=== PATIENT | female | born 1930 | race Caucasian/White ===

== ENCOUNTER 2016-12-08 16:07 | Inpatient (IN) | payer OTHER, BC ==
[~2016-12-08] VITALS: Ht 154.9 cm; Wt 65.3 kg
[~2016-12-08 16:07] MED LIST: NOHOMEMEDS; TYLENOL WITH C1 EACH PO
[2016-12-08 16:41] LABS: BASOPHIL COUNT 0.1 K/uL (0-0.1); EOSINOPHIL (%) 7.7 % (0-5); EOSINOPHIL COUNT 0.5 K/uL (0-0.3); HEMATOCRIT 36.8 % (36.0-46.0); IMMATURE GRANULOCYTE (%) 0.3 % (0.0-0.7); INSTRUMENT ABS NEUTROPHIL CT 3.3 K/uL; LYMPHOCYTE COUNT 1.6 K/uL (1.0-2.8); MCH 31.7 PG (29.0-34.0); MCHC 34.2 G/DL (30.0-36.0); MCV 92.7 FL (83-99); MEAN PLAT.VOLUME 10.1 uM^3 (9.5-12.4); MONOCYTE (%) 13.6 % (3-12); MONOCYTE COUNT 0.9 K/uL (0-0.8); NEUTROPHIL (%) 52.4 % (45-76); NEUTROPHIL COUNT 3.3 K/uL (1.8-6.4); PLATELET COUNT 244 K/uL (156-360); RBC DIS.WIDTH-CV 12.6 % (11.8-14.6); RBC DIS.WIDTH-SD 42.7 % (39-53); RED BLOOD COUNT 3.97 M/uL (3.80-5.20); WHITE BLOOD COUNT 6.3 K/uL (4.1-10.2)
[2016-12-08 16:49] LABS: CHLORIDE 106 mEq/L (99-109); SODIUM 137 mEq/L (136-147)
[2016-12-08 16:50] LABS: PTT 28.2 SEC (25-37)
[2016-12-08 16:51] LABS: GLUCOSE 261 mg/dL (70-99)
[2016-12-08 16:52] LABS: ANION GAP 7 MEQ/L (2-14)
[2016-12-08 16:54] LABS: GFR ESTIMATE (CALCULATED) > 59 mL/min/
[2016-12-08 16:55] LABS: UREA NITROGEN (BUN) 11 mg/dL (9-23)
[2016-12-08] MEDS ORDERED: DIABETA5 MG PO (17:24)
[2016-12-08] MEDS ORDERED: ASPIR 8181 M1 PO (17:25)
[2016-12-08] MEDS ORDERED: VITAMINS (17:27)
[2016-12-08 17:32] LABS: HDL CHOLESTEROL 52 MG/DL (Desirable>=50); LDL CHOLESTEROL 109 mg/dL (Desirable<100); NON-HDL CHOLESTEROL 145 mg/dL (Desirable<160); TOTAL CHOLESTEROL 197 mg/dL (Desirable<200); TRIGLYCERIDES 178 MG/DL (Normal: <150)
[2016-12-08 19:37] LABS: ADD MIUA? YES; BILIRUBIN NEGATIVE; BLOOD NEGATIVE; COLOR YELLOW ((YELLOW)); GLUCOSE (STRIP) >=500; KETONES NEGATIVE; LEUKOCYTES NEGATIVE; NITRITE NEGATIVE; PROTEIN (STRIP) NEGATIVE; SPECIFIC GRAVITY 1.003 (1.000-1.030); UROBILINOGEN 0.2 MG/DL (0.2-1.0)
[2016-12-08 19:43] LABS: Estimated Average Glucose 180 mg/dL (70-123); HEMOGLOBIN A1c (GLYCOHEMOGLOB) 7.9 % HGB (Below 5.7)
[2016-12-08 19:46] LABS: BACTERIA NONE SEEN /HPF; CALCIUM OXALATE CRYSTALS 1+ /HPF; EPITHELIAL CELLS RARE /HPF; MUCUS NONE SEEN /LPF; RED BLOOD CELLS 0-5 /HPF (0-5); UCUL ADDED? NO; WHITE BLOOD CELLS 0-5 /HPF (0-5)
[2016-12-08 21:05] VITALS: BP 173/74
[2016-12-08 23:42] VITALS: BP 125/62
[2016-12-09 01:36] LABS: TROP-I INTERPRETATION NEGATIVE; TROPONIN-I < 0.01 ng/mL (0.0-0.30)
[2016-12-09 04:20] VITALS: BP 126/62
[2016-12-09 06:34] LABS: HEMATOCRIT 35.4 % (36.0-46.0); MCHC 32.8 G/DL (30.0-36.0); MCV 94.7 FL (83-99); MEAN PLAT.VOLUME 10.4 uM^3 (9.5-12.4); PLATELET COUNT 217 K/uL (156-360); RBC DIS.WIDTH-CV 12.6 % (11.8-14.6); RBC DIS.WIDTH-SD 43.9 % (39-53); RED BLOOD COUNT 3.74 M/uL (3.80-5.20)
[2016-12-09 06:59] LABS: TROP-I INTERPRETATION NEGATIVE; TROPONIN-I < 0.01 ng/mL (0.0-0.30)
[2016-12-09 07:34] VITALS: BP 137/69
[2016-12-09 12:25] LABS: POINT-OF-CARE METER ID UU13113717
[2016-12-09 12:34] VITALS: BP 136/67
[2016-12-09 13:31] LABS: TROP-I INTERPRETATION NEGATIVE; TROPONIN-I < 0.01 ng/mL (0.0-0.30)
[2016-12-09 16:09] VITALS: BP 154/79
[2016-12-09 19:29] VITALS: BP 172/92
[2016-12-09 21:10] LABS: POINT-OF-CARE METER ID UU14188625
[2016-12-09 23:40] VITALS: BP 164/87
[2016-12-10 04:05] VITALS: BP 126/62
[2016-12-10 08:24] VITALS: BP 148/67
[2016-12-10] MEDS ORDERED: ASPIRIN EC325 MG PO (10:31)
[2016-12-10] MEDS ORDERED: LIPITOR40 MG PO (10:31)
[2016-12-10] MEDS ORDERED: METFORMIN HCL500 M4 PO ×2 (10:31→10:51)
[2016-12-10] MEDS ORDERED: METFORMIN HCL500 MG PO (11:11)
== END 2016-12-10 12:42 | disposition home health service (06) | DRG 65 ==
LOC: EME 16:07 → 5SOUTH 18:30 → EDOF 18:30 → ENRESERV 18:32 → 5SOUTH 19:25 → ENRESERV 19:27 → EDOF 19:29 → ENRESERV 19:30 → 5SOUTH 20:04 → ENRESERV 20:07 → ENPENDDIS 12-10 → 5SOUTH 12-10 12:42
PROVIDERS: Emergency Medicine; Hospitalist
DX: I63.9 Cerebral infarction, unspecified (principal); E11.59 Type 2 diabetes mellitus with other circulatory complications; E11.65 Type 2 diabetes mellitus with hyperglycemia; Z79.84 Long term (current) use of oral hypoglycemic drugs; G81.94 Hemiplegia, unspecified affecting left nondominant side; Z79.82 Long term (current) use of aspirin; Z79.899 Other long term (current) drug therapy; Z74.09 Other reduced mobility; R47.81 Slurred speech; R47.89 Other speech disturbances
CPT/HCPCS: 70450; 70551; 80048; 80061; 81003; 82607; 82746; 82948; 83036; 84439; 84443; 84484; 85025; 85027; 85610; 85730; 87086; 92523 GN; 93005; 93306; 93880; 99281; 99285; J1644; J1815; J7030

== ENCOUNTER 2017-09-12 16:41 | Observation (INO) | payer OTHER, BC ==
[~2017-09-12] VITALS: Ht 154.9 cm; Wt 62.7 kg
[~2017-09-12 16:41] MED LIST changes: +ASPIR 8181 M1 PO; +ASPIRIN EC325 MG PO; +DIABETA5 MG PO; +LIPITOR40 MG PO; +METFORMIN HCL500 M4 PO; +METFORMIN HCL500 MG PO; +VITAMINS
[2017-09-12 17:18] LABS: HEMATOCRIT 37.1 % (36.0-46.0); HEMOGLOBIN 12.6 G/DL (11.9-15.5); MCH 32.6 PG (29.0-34.0); MCV 95.9 FL (83-99); PLATELET COUNT 239 K/uL (156-360); RBC DIS.WIDTH-CV 12.4 % (11.8-14.6); RBC DIS.WIDTH-SD 43.1 % (39-53); RED BLOOD COUNT 3.87 M/uL (3.80-5.20); WHITE BLOOD COUNT 6.1 K/uL (4.1-10.2)
[2017-09-12 17:31] LABS: CHLORIDE 107 mEq/L (99-109); POTASSIUM 4.8 mEq/L (3.7-5.4); SODIUM 143 mEq/L (136-147)
[2017-09-12 17:33] LABS: GLUCOSE 197 mg/dL (70-99)
[2017-09-12 17:37] LABS: CREATININE 0.9 mg/dL (0.6-1.3); GFR ESTIMATE (CALCULATED) > 59 mL/min/
[2017-09-12 17:38] LABS: UREA NITROGEN (BUN) 19 mg/dL (9-23)
[2017-09-12 17:45] LABS: TROP-I INTERPRETATION NEGATIVE; TROPONIN-I 0.01 ng/mL (0.0-0.30)
[2017-09-12] MEDS ORDERED: LO-DOSE ASPIRIN81 M2 PO (19:55)
[2017-09-12] MEDS ORDERED: GLUCOTROL XL5 MG PO (20:00)
[2017-09-12] MEDS ORDERED: CYANOCOBALAM1000 MCG PO (20:00)
[2017-09-12] MEDS ORDERED: LECITHIN1200 M1 PO (20:01)
[2017-09-12 20:03] LABS: PTT 28.1 SEC (25-37)
[2017-09-12 21:35] VITALS: BP 179/75
[2017-09-12 23:12] VITALS: BP 103/50
[2017-09-13 01:28] LABS: TROP-I INTERPRETATION NEGATIVE; TROPONIN-I < 0.01 ng/mL (0.0-0.30)
[2017-09-13 02:50] VITALS: BP 137/65
[2017-09-13 05:44] LABS: TROP-I INTERPRETATION NEGATIVE; TROPONIN-I < 0.01 ng/mL (0.0-0.30)
[2017-09-13 08:00] VITALS: BP 159/68
[2017-09-13] MEDS ORDERED: CYCLOBENZAPRINE5 MG PO (12:27)
[2017-09-13] MEDS ORDERED: ENDOCET 5-3251 EACH PO (12:30)
[2017-09-13] MEDS ORDERED: LIDODERM 5% P1 PATCH TD (12:30)
== END 2017-09-13 13:58 | disposition home or self-care (01) ==
LOC: EME 16:41 → 4SOUTH 20:12 → EDOF 20:12 → ENRESERV 20:17 → 4SOUTH 21:17 → ENPENDDIS 09-13 13:07 → 4SOUTH 09-13 13:58
PROVIDERS: Hospitalist
DX: M47.22 Other spondylosis with radiculopathy, cervical region (principal); M48.02 Spinal stenosis, cervical region; M25.512 Pain in left shoulder; M25.78 Osteophyte, vertebrae; Z98.1 Arthrodesis status; I10 Essential (primary) hypertension; E78.5 Hyperlipidemia, unspecified; E11.9 Type 2 diabetes mellitus without complications; Z79.84 Long term (current) use of oral hypoglycemic drugs; Z79.82 Long term (current) use of aspirin
CPT/HCPCS: 71046; 71275; 72125; 72141; 80048; 84484; 85027; 85610; 85730; 93005; 99281; 99284; G0378